=== PATIENT | male | born 1980 | race African-American/Black ===

== ENCOUNTER 2023-10-28 11:17 | Emergency (ER) | payer OTHER ==
[~2023-10-28] VITALS: Ht 180.3 cm; Wt 109.0 kg
[2023-10-28 11:21] VITALS: BP 183/108; PULSE 75; RESP 16; TEMP 97.6; O2SAT 99
[2023-10-28] MEDS ORDERED: MORPHINE SULFATE 4 MG/ML CPJ (NOT FOR IM USE) IV STA (11:29)
[2023-10-28] MEDS ORDERED: ONDANSETRON HCL 4MG/2ML INJ IV STA (11:29)
== END 2023-10-28 12:51 | disposition left against medical advice (07) ==
LOC: ER 11:17 → CANBEDREQ 12:46 → ER 12:51
DX: R07.89 Other chest pain (principal); I10 Essential (primary) hypertension
CPT/HCPCS: 93005; 99283